=== PATIENT | male | born 1990 | race Caucasian/White ===

== ENCOUNTER 2017-07-07 03:45 | Emergency (ER) | payer OTHER ==
[2017-07-07] MEDS ORDERED: KETOROLAC 30 MG/ML VIAL IVP STA (04:11)
[2017-07-07 04:34] LABS: BILIRUBIN,URINE NEGATIVE (NEGATIVE); GLUCOSE, URINE (UA) NEGATIVE (NEGATIVE); KETONES,URINE (UA) NEGATIVE (NEGATIVE); LEUKOCYTE ESTERASE, URINE NEGATIVE (NEGATIVE); NITRITE,URINE NEGATIVE (NEGATIVE); OCCULT BLOOD,URINE LARGE (NEGATIVE); PROTEIN,URINE NEGATIVE (NEGATIVE); UROBILINOGEN,URINE 0.2 (NORMAL) E.U./dL (NORMAL)
[2017-07-07 04:40] LABS: BACTERIA,URINE None Seen /HPF (None Seen); CLARITY,URINE CLEAR (CLEAR); MUCUS,URINE Few Strands; RBC,URINE TNTC /HPF (0-5); SQUAMOUS EPITHELIAL CELL,UR NONE SEEN (<= Few)
--- NOTE | 2017-07-07 04:41 | ED Physician Documentation ---
History of Present Illness - Stated complaint Stated Complaint: BACK SPASM - Chief complaint Chief Complaint: Back Pain - History obtained from History obtained from: Patient (pt reports that this evening he got up to go use the restroom and started to have right sided flank pain. states that he tried to use the restroom and afterward he had the pain, no nuasea or vomiting, no blood in the urine. no fevers, no hx of renal stones, no hx of UTI's. no rashes.) Review of Systems Constitutional: denies: Fever, Chills Cardiac: denies: Chest pain / pressure Respiratory: denies: Dyspnea, Cough GI: denies: Abdominal Pain, Nausea, Vomiting, Constipation, Diarrhea, Bloody / black stool : reports: Dysuria, Hesitancy. denies: Unable to Void, Incontinent, Hematuria , Testicular pain Skin: denies: Rash, Lesions Musculoskeletal: reports: Back pain (right flank) Neurologic: denies: Altered mental status, Headache, LOC PD PAST MEDICAL HISTORY - Past Medical History Past Medical History: No - Past Surgical History Past Surgical History: Yes General: Appendectomy - Present Medications Home Medications: Ambulatory Orders Medication Instructions Recorded Confirmed No Known Home Medications [No 07/07/17 07/07/17 Known Home Medications] - Allergies Allergies/Adverse Reactions: Allergies Allergy/AdvReac Type Severity Reaction Status Date / Time No Known Drug Allergies Allergy Verified 07/07/17 03:52 - Social History Does the pt smoke?: No Smoking Status: Never smoker Does the pt drink ETOH?: Yes Does the pt have substance abuse?: No - Immunizations Immunizations are current?: Yes PD ED PE NORMAL - Vitals Vital signs reviewed: Yes - General General: Alert and oriented X 3, No acute distress, Well developed/nourished - HEENT HEENT: Atraumatic - Cardiac Cardiac: RRR, No murmur - Respiratory Respiratory: No respiratory distress, Clear bilaterally - Abdomen Abdomen: Soft, Non tender, Non distended - Back Back: No CVA TTP - Derm Derm: Normal color, Warm and dry, No rash - Extremities Extremities: No edema, No calf tenderness / cord - Neuro Neuro: Alert and oriented X 3 Eye Opening: Spontaneous Motor: Obeys Commands Verbal: Oriented GCS Score: 15 - Psych Psych: Normal mood, Normal affect Results - Vitals Vitals: Vital Signs - 24 hr 07/07/17 03:50 Temperature 36.7 C Heart Rate 65 Respiratory 18 Rate Blood Pressure 139/87 H O2 Saturation 100 Oxygen O2 Source Room air - Labs Labs: Laboratory Tests 07/07/17 07/07/17 04:20 05:32 Sodium 138 Potassium 4.3 Chloride 103 Carbon Dioxide 26 Anion Gap 9.0 BUN 16 Creatinine 0.8 Estimated GFR (MDRD) 116 Glucose 111 H Calcium 9.3 Urine Color YELLOW Urine Clarity CLEAR Urine pH 6.0 Ur Specific [place] >=1.030 H Urine Protein NEGATIVE Urine Glucose (UA) NEGATIVE Urine Ketones NEGATIVE Urine Occult Blood LARGE H Urine Nitrite NEGATIVE Urine Bilirubin NEGATIVE Urine Urobilinogen 0.2 (NORMAL) Ur Leukocyte Esterase NEGATIVE Urine RBC TNTC H Urine WBC 0-3 Ur Squamous Epith Cells NONE SEEN Urine Bacteria None Seen Urine Mucus Few Strands Ur Microscopic Review INDICATED Urine Culture Comments NOT INDICATED - Rads (name of study) CT ABD/ Pelvis Radiology: Final report received (2mm stone in the right kidney and a 2mm stone in the bladder), EMP read contemporaneously PD MEDICAL DECISION MAKING - ED course Complexity details: reviewed results, re-evaluated patient, considered differential, d/w patient ED course: pt with a benign exam in the ER. has indication for a stone in the urinary bladder. Renal function normal. Discussed the findings with the patient. we discussed expected course of the symptoms. he expressed understanding. Departure - Departure Disposition: 01 Home, Self Care Clinical Impression: Renal colic on right side, Kidney stones Condition: Good Instructions: ED Stone Renal W Colic Follow-Up: Mike Aguilar MD [Primary Care Provider] - Comments: Increase your fluid intake. Return to the ER for any new or worsening symptoms.
--- NOTE | 2017-07-07 05:28 | CT Report ---
EXAM: CT ABDOMEN AND PELVIS (CT KUB) EXAM DATE: 07/07/2017 05:15 AM. CLINICAL HISTORY: Right sided pain concern for stone. COMPARISONS: None. TECHNIQUE: Routine axial helical CT imaging was performed through the abdomen and pelvis without IV c ontrast. Reconstructions: Coronal and sagittal. In accordance with CT protocol optimization, one or more of the following dose reduction techniques w ere utilized for this exam: automated exposure control, adjustment of mA and/or KV based on patient s ize, or use of iterative reconstructive technique. FINDINGS: Lung Bases: Unremarkable. Right Kidney/Ureter: Nonobstructing 2 mm stone in the right kidney. No ureteral stone or obstructive uropathy seen. Left Kidney/Ureter: No stones, hydronephrosis, or hydroureter. No perinephric fat stranding. Other Solid Organs: A few calcified granulomas are seen in the liver. Spleen, pancreas, and adrenals show no focal abnormalities on this noncontrast examination. Gallbladder/Bile Ducts: Unremarkable. Peritoneal Cavity: No bowel obstruction seen. No diverticulitis. Moderate stool in the right hemicolo n. Normal sized mesenteric and retroperitoneal lymph nodes. Appendix is not seen. Possible appendecto my. Pelvic Organs: There is a 2 mm stone in the urinary bladder, series 3 image 137. Visualized pelvic or nani are otherwise unremarkable. Vasculature: Unremarkable. Other: None. IMPRESSION: 1. Nonobstructing 2 mm stone in the right kidney. 2. There is a 2 mm stone in the urinary bladder which presumably has passed from one of the ureters. [facility] Referring Provider Line: [phone] SITE ID: [id number]
[2017-07-07 05:46] LABS: CALCIUM 9.3 mg/dL (8.5-10.3); CREATININE 0.8 mg/dL (0.6-1.2)
[2017-07-07 06:11] VITALS: BP 139/78
== END 2017-07-07 06:10 | disposition home or self-care (01) ==
LOC: ED 03:45
DX: N20.0 Calculus of kidney (principal); N21.0 Calculus in bladder
CPT/HCPCS: 36415; 74176; 80048; 81001; 81003; 87086; 96374; 99283